=== PATIENT | female | born 1945 | race Caucasian/White ===

== ENCOUNTER → 2018-10-30 | Outpatient (CLI) | payer OTHER, MEDICARE ==
--- NOTE | 2018-10-30 17:31 | KCIC ---
PA and lateral chest. HISTORY: Acute pharyngitis, cough, smoker, Jann 02.8 PA and lateral views were taken of the chest. Lungs are clear. Heart is normal in size. There is no pleural effusion. There is hypertrophic change in the thoracic spine. IMPRESSION: 1. No acute chest disease. Electronically signed by: Ja Linn MD (10/30/2018 5:28 PM) [facility]
== END | disposition home or self-care (01) ==
LOC: KCIC 13:15
PROVIDERS: ATTEND Family Medicine
DX: J02.8 Acute pharyngitis due to other specified organisms (principal); R05 Cough; Z87.891 Personal history of nicotine dependence
CPT/HCPCS: 71046

== ENCOUNTER → 2020-04-25 | Outpatient (CLI) | payer OTHER, MEDICARE ==
--- NOTE | 2020-04-25 16:12 | KCIC ---
EXAM: Thoracic spine, 3 views. HISTORY: Pain. COMPARISON: None. FINDINGS: 3 views of the thoracic spine are obtained. There is mild thoracic scoliosis. There is dege nerative endplate remodeling and anterior spurring throughout the thoracic spine. There is suspected bone demineralization. There are degenerative changes involving the cervical spine, not formally asse ssed on this exam. IMPRESSION: 1. 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 2. No convincing acute osseous finding. Electronically signed by: Amy Mcgrath MD (04/25/2020 4:09 PM) [id number]
== END ==
LOC: KCIC 15:04
PROVIDERS: ATTEND Family Medicine
DX: M47.814 Spondylosis without myelopathy or radiculopathy, thoracic region (principal); M41.84 Other forms of scoliosis, thoracic region; M54.6 Pain in thoracic spine
CPT/HCPCS: 72072

== ENCOUNTER → 2021-05-29 | Outpatient (CLI) | payer OTHER, MEDICARE ==
--- NOTE | 2021-05-29 10:56 | KCIC ---
EXAM: CT CHEST WITHOUT CONTRAST (LDCT LUNG CANCER SCREENING). HISTORY: Risk factors for pulmonary malignancy. Cigarette smoking. TECHNIQUE: CT of the chest was performed without intravenous contrast using a low-dose lung screening protocol. Findings analysis is based on ACR Lung-RADS v1.1. *One or more of the following individual ized dose reduction techniques were utilized for this examination: 1. Automated exposure control. 2. Adjustment of the mA and/or kV according to patient size. 3. Use of iterative reconstruction technique. COMPARISON: None. FINDINGS: The heart is normal in size. There is calcified atherosclerotic plaque involving the spence ry arteries an aortic arch. There is calcification of the aortic valve. No pathologically enlarged me diastinal or hilar lymph node is seen. There is focal asymmetric density within the upper outer quadr ant of the left breast. There is mild emphysema. There is no pneumothorax, pleural effusion or infiltrate. There is a abdomen nodule within the anterior right middle lobe along the right minor fissure. No additional nodule is seen. There is a coarse calcification within the distal pancreatic body which is vascular or due to t he sequela of chronic pancreatitis. The gallbladder is surgically absent. There is a 1.9 cm 6 simple cyst within the right kidney. Follow -up is not routinely performed for simple cysts. There is no acute or suspicious osseous finding. The re are degenerative changes throughout the thoracic spine. IMPRESSION: 1. 5 mm nodule within the right upper lobe along the right minor fissure. Lung RADS category 2: Follo w-up with a chest CT in 12 months is recommended. 2. Emphysema. 3. No acute thoracic finding. Electronically signed by: Amy Mcgrath MD (05/29/2021 10:53 AM) [id number]
== END ==
LOC: KCIC CT 10:22
PROVIDERS: ATTEND Family Medicine
DX: R91.1 Solitary pulmonary nodule (principal); J34.9 Unspecified disorder of nose and nasal sinuses; I25.10 Atherosclerotic heart disease of native coronary artery without angina pectoris; I70.0 Atherosclerosis of aorta; Z90.49 Acquired absence of other specified parts of digestive tract; F17.210 Nicotine dependence, cigarettes, uncomplicated
CPT/HCPCS: 71271